=== PATIENT | male | born 1975 | race Caucasian/White ===

== ENCOUNTER → 2021-11-03 | Outpatient (CLI) | payer OTHER | LOC: M PLAIMG 08:40 | PROVIDERS: ATTEND Physician Assistant | DX: M77.11 Lateral epicondylitis, right elbow (principal) ==

== ENCOUNTER → 2021-12-25 | Outpatient (CLI) | payer OTHER | LOC: M PLARAD 09:07 | PROVIDERS: ATTEND Physician Assistant | DX: M25.522 Pain in left elbow (principal) ==

== ENCOUNTER 2022-06-26 08:21 | Emergency (ER) | payer OTHER ==
[~2022-06-26] VITALS: Ht 180.3 cm; Wt 89.8 kg
[2022-06-26] MEDS ORDERED: ERYT5OIN25 OP (08:55)
[2022-06-26 09:08] VITALS: BP 137/69
== END 2022-06-26 09:15 | disposition home or self-care (01) ==
LOC: M ED 08:21
DX: H10.33 Unspecified acute conjunctivitis, bilateral (principal)

== ENCOUNTER 2022-07-02 11:12 | Emergency (ER) | payer OTHER ==
[~2022-07-02] VITALS: Ht 180.3 cm; Wt 84.1 kg
[~2022-07-02 11:12] MED LIST: ERYT5OIN25 OP
[2022-07-02 11:13] VITALS: BP 135/78
[2022-07-02] MEDS ORDERED: AMOX875T PO (12:02)
== END 2022-07-02 12:12 | disposition home or self-care (01) ==
LOC: M ED 11:12
DX: J02.0 Streptococcal pharyngitis (principal)

== ENCOUNTER 2022-07-27 10:43 | Emergency (ER) | payer OTHER ==
[~2022-07-27] VITALS: Ht 180.3 cm; Wt 84.5 kg
[~2022-07-27 10:43] MED LIST changes: +AMOX875T PO
[2022-07-27] MEDS ORDERED: KETOROLAC 30 MG/ML 1ML VIAL IM ONE (11:55)
[2022-07-27] MEDS ORDERED: ACETAMINOPHEN TAB 650MG DOSE (2X325MG) PO ONE (11:55)
[2022-07-27] MEDS ORDERED: KETO10TAB PO (11:58)
[2022-07-27] MEDS ORDERED: CYCL-707 PO (11:58)
[2022-07-27 12:02] VITALS: BP 135/84
== END 2022-07-27 12:27 | disposition home or self-care (01) ==
LOC: M ED 10:43
DX: S39.012A Strain of muscle, fascia and tendon of lower back, initial encounter (principal); X58.XXXA Exposure to other specified factors, initial encounter; Y92.89 Other specified places as the place of occurrence of the external cause; Y93.89 Activity, other specified; Y99.8 Other external cause status; M54.31 Sciatica, right side
CPT/HCPCS: 96372; 99283; J1885

== ENCOUNTER 2022-10-01 09:31 | Day surgery (SDC) | payer OTHER ==
[~2022-10-01] VITALS: Ht 182.9 cm; Wt 80.3 kg
[~2022-10-01 09:31] MED LIST changes: +CYCL-707 PO; +KETO10TAB PO; +NS 1,000 ML IV ONE
[2022-10-01] MEDS ORDERED: propofoL 200 MG/20 ML VIAL As Ordered ONE ×2 (10:41→11:11)
[2022-10-01 11:30] VITALS: TEMP 96.6
[2022-10-01 11:50] VITALS: BP 120/76; O2SAT 98
== END 2022-10-01 12:08 | disposition home or self-care (01) ==
LOC: M OPP 09:31
PROVIDERS: ATTEND Internal Medicine Gastroenterology
DX: Z12.11 Encounter for screening for malignant neoplasm of colon (principal); Z80.0 Family history of malignant neoplasm of digestive organs; K51.20 Ulcerative (chronic) proctitis without complications

== ENCOUNTER 2024-11-19 06:24 | Day surgery (SDC) | payer OTHER ==
[~2024-11-19] VITALS: Ht 180.3 cm; Wt 88.3 kg
[~2024-11-19 06:24] MED LIST changes: +FINASTERIDE PO; +MINO2.5T PO; +MINOXIDIL PO; -NS 1,000 ML IV ONE
[2024-11-19] MEDS ORDERED: LR 1,000 ML IV SCH ×2 (06:35→08:55)
[2024-11-19] MEDS ORDERED: MIDAZOLAM INJ 2 MG/2 ML VIAL As Ordered ONE (07:09)
[2024-11-19] MEDS ORDERED: dexAMETHasone 4 MG/ML 1 ML VIAL As Ordered ONE (07:10)
[2024-11-19] MEDS ORDERED: LIDOCAINE 2% 100 MG/5 ML SDV (FOR ANES.) As Ordered ONE (07:10)
[2024-11-19] MEDS ORDERED: ONDANSETRON 4MG 2ML VIAL As Ordered ONE (07:10)
[2024-11-19] MEDS ORDERED: ACETAMINOPHEN 1000MG/100ML IV BAG As Ordered ONE (07:11)
[2024-11-19] MEDS ORDERED: dexmedeTOMIDine (4 MCG/ML) 200 MCG/50 ML BTL As Ordered ONE (07:16)
[2024-11-19] MEDS: ceFAZolin SOD 2 GM IV ONCE IV ONE (07:50)
[2024-11-19] MEDS ORDERED: KETOROLAC 30 MG/ML 1 ML VIAL As Ordered ONE (08:18)
[2024-11-19] MEDS: LIDOCAINE W/EPINEPHrine 1% 20 ML VIAL As Ordered ONE (08:43)
[2024-11-19] MEDS ORDERED: ONDANSETRON 4MG 2ML VIAL IV PRN (08:55)
[2024-11-19] MEDS ORDERED: PERC5TAB12 PO (09:17)
[2024-11-19] MEDS: HYDROMORPHONE HCL 0.5 MG/0.5 ML SYRINGE IV PRN (09:21)
[2024-11-19 10:40] VITALS: BP 116/66; TEMP 97.1; O2SAT 98
== END 2024-11-19 11:19 | disposition home or self-care (01) ==
LOC: M SDC 06:24
PROVIDERS: ATTEND Orthopaedic Surgery Hand Surgery
DX: M77.11 Lateral epicondylitis, right elbow (principal); G56.21 Lesion of ulnar nerve, right upper limb
CPT/HCPCS: 24358; 29999; 88304; J0131; J0690; J1100; J1171; J1885; J2250; J2405; J3010

== ENCOUNTER 2024-12-31 23:52 | Day surgery (SDC) | payer OTHER ==
[~2024-12-31] VITALS: Ht 180.3 cm; Wt 85.9 kg
[~2024-12-31 23:52] MED LIST changes: +PERC5TAB12 PO
[2025-01-01 00:32] LABS: BASO # 0.1 10^3/uL (0.0-0.2); BASO % 0.4 % (0.0-1.0); EOS # 0.4 10^3/uL (0.0-0.5); EOS % 2.4 % (0.0-3.0); LYMPH # 4.4 10^3/uL (1.5-5.0); LYMPH % 27.7 % (24.0-44.0); MONO # 1.4 10^3/uL (0.0-0.8); MONO % 8.6 % (2.0-8.0); NEUTROPHILS # 9.7 10^3/uL (1.5-8.5); NEUTROPHILS % 60.6 % (36.0-66.0); PLATELET COUNT, AUTOMATED 253 10^3/uL (150-450)
[2025-01-01 00:46] LABS: ALT/SGPT 39.0 U/L (7.0-40); AST/SGOT 21.0 U/L (<34); CALCIUM LEVEL 9.3 MG/DL (8.5-10.1); CARBON DIOXIDE LEVEL 28.0 MMOL/L (20-31); CHLORIDE LEVEL 102.0 MMOL/L (98-107); CREATININE FOR GFR 1.25 MG/DL (0.70-1.30); GLOMERULAR FILTRATION RATE 71.5 (>60); POTASSIUM SERUM 4.0 MMOL/L (3.5-5.1); SODIUM LEVEL 140.0 MMOL/L (136-145)
[2025-01-01] MEDS: KETOROLAC 30 MG/ML 1 ML VIAL IV ONE (01:42)
[2025-01-01] MEDS ORDERED: ISOVUE-370 76% 100 ML VIAL As Ordered ONE (04:30)
[2025-01-01] MEDS: PIPERACILLIN/TAZOBACTAM SOD 3.375 GM in DEXTROSE 5% (D5W) ADV/MINI-BAG 50 ML IV ONE (06:28)
[2025-01-01] MEDS: ONDANSETRON 4MG 2ML VIAL IV ONE (06:28)
[2025-01-01] MEDS: NS (Normal Saline) 0.9% 1,000 ML IV ONE (06:28)
[2025-01-01] MEDS: MORPHINE 4 MG/ML 1 ML VIAL IV ONE (07:34)
[2025-01-01] MEDS ORDERED: MINO (08:34)
[2025-01-01] MEDS ORDERED: PERCOCET PO (08:34)
[2025-01-01] MEDS ORDERED: [UNRECOGNIZED DRUG - MIXTURE] PO (08:35)
[2025-01-01] MEDS ORDERED: HOME MED LIST COMPLETE! XX SCH (08:40)
[2025-01-01] MEDS: MORPHINE 2 MG/ML 1 ML VIAL IV ONE (08:43)
[2025-01-01] MEDS ORDERED: ONDANSETRON 4MG 2ML VIAL As Ordered ONE (10:56)
[2025-01-01] MEDS ORDERED: MIDAZOLAM INJ 2 MG/2 ML VIAL As Ordered ONE (10:56)
[2025-01-01] MEDS ORDERED: dexAMETHasone 4 MG/ML 1 ML VIAL As Ordered ONE (10:56)
[2025-01-01] MEDS ORDERED: LIDOCAINE 2% 100 MG/5 ML SDV (FOR ANES.) As Ordered ONE (10:56)
[2025-01-01] MEDS ORDERED: KETOROLAC 30 MG/ML 1 ML VIAL As Ordered ONE (10:56)
[2025-01-01] MEDS ORDERED: ROCURONIUM BROMIDE 50MG/5ML VIAL As Ordered ONE (10:56)
[2025-01-01] MEDS: ZOSYN 3.375GM VIAL As Ordered ONE (12:20)
[2025-01-01] MEDS ORDERED: SUGAMMADEX SODIUM 200 MG/2 ML VIAL As Ordered ONE (12:41)
[2025-01-01] MEDS ORDERED: ACETAMINOPHEN 1000MG/100ML IV BAG As Ordered ONE (12:41)
[2025-01-01] MEDS ORDERED: HYDROMORPHONE HCL 0.5 MG/0.5 ML SYRINGE IV PRN (13:00)
[2025-01-01] MEDS ORDERED: ONDANSETRON 4MG 2ML VIAL IV PRN (13:00)
[2025-01-01] MEDS ORDERED: LR 1,000 ML IV SCH (13:00)
[2025-01-01] MEDS ORDERED: AUGM500T34 PO (13:17)
[2025-01-01] MEDS ORDERED: HYDR-3713 PO (13:17)
[2025-01-01 15:30] VITALS: BP 108/80; TEMP 97.2; O2SAT 96
== END 2025-01-01 15:58 | disposition home or self-care (01) ==
LOC: M ED 23:52 → M SDC 23:53
PROVIDERS: ATTEND Surgery
DX: K35.80 Unspecified acute appendicitis (principal); G47.30 Sleep apnea, unspecified
CPT/HCPCS: 44970; 74177; 80048; 80076; 83690; 85025; 88304; 99285; J0131; J0665; J1100; J1885; J2250; J2405; J2543; J3010; Q9967

== ENCOUNTER 2025-01-06 02:26 | Inpatient (IN) | payer OTHER ==
[~2025-01-06] VITALS: Ht 180.3 cm; Wt 85.9 kg
[~2025-01-06 02:26] MED LIST changes: +AUGM500T34 PO; +HYDR-3713 PO; +MINO; +PERCOCET PO; +[UNRECOGNIZED DRUG - MIXTURE] PO
[2025-01-06 07:24] LABS: BASO # 0.0 10^3/uL (0.0-0.2); BASO % 0.4 % (0.0-1.0); EOS # 0.3 10^3/uL (0.0-0.5); EOS % 4.0 % (0.0-3.0); LYMPH # 1.1 10^3/uL (1.5-5.0); LYMPH % 12.6 % (24.0-44.0); MONO # 1.0 10^3/uL (0.0-0.8); MONO % 11.5 % (2.0-8.0); NEUTROPHILS # 6.1 10^3/uL (1.5-8.5); NEUTROPHILS % 71.1 % (36.0-66.0); PLATELET COUNT, AUTOMATED 239 10^3/uL (150-450)
[2025-01-06] MEDS: KETOROLAC 30 MG/ML 1 ML VIAL IV ONE (07:28)
[2025-01-06 07:56] LABS: ALT/SGPT 163 U/L (7.0-40); AST/SGOT 62 U/L (<34); CALCIUM LEVEL 8.8 MG/DL (8.5-10.1); CARBON DIOXIDE LEVEL 29 MMOL/L (20-31); CHLORIDE LEVEL 100 MMOL/L (98-107); CREATININE FOR GFR 0.99 MG/DL (0.70-1.30); GLOMERULAR FILTRATION RATE > 90.0 (>60); POTASSIUM SERUM 4.4 MMOL/L (3.5-5.1); SODIUM LEVEL 142 MMOL/L (136-145)
[2025-01-06] MEDS ORDERED: ISOVUE-370 76% 100 ML VIAL As Ordered ONE (08:52)
[2025-01-06] MEDS: NS (Normal Saline) 0.9% 1,000 ML IV ONE (09:55)
[2025-01-06] MEDS ORDERED: AMOX875T2 PO (09:56)
[2025-01-06] MEDS ORDERED: HOME MED LIST COMPLETE! XX SCH (10:00)
[2025-01-06] MEDS: PIPERACILLIN/TAZOBACTAM SOD 4.5 GM in DEXTROSE 5% (D5W) ADV/MINI-BAG 50 ML IV ONE (10:21)
[2025-01-06] MEDS ORDERED: ONDANSETRON 4MG 2ML VIAL IV PRN (11:00)
[2025-01-06] MEDS ORDERED: ACETAMINOPHEN *IV* 1,000 MG in IV 1 EA IV PRN (11:00)
[2025-01-06] MEDS: ENOXAPARIN 40 MG/0.4 ML SYRINGE (J1650 PER 10MG) SC SCH (11:58)
[2025-01-06] MEDS: LR 1,000 ML IV SCH (11:58)
[2025-01-06 12:17] VITALS: BP 129/62; TEMP 97.9; O2SAT 97
[2025-01-06] MEDS: ACETAMINOPHEN *IV* 1,000 MG in IV 1 EA IV PRN (12:46)
[2025-01-06 13:00] LABS: HEPATITIS C VIRUS ABY INDEX < 0.02 INDEX (<0.8)
[2025-01-06] MEDS: PIPERACILLIN/TAZOBACTAM SOD 3.375 GM in DEXTROSE 5% (D5W) ADV/MINI-BAG 50 ML IV SCH (15:30)
[2025-01-06 19:50] VITALS: BP 117/64; TEMP 98; O2SAT 98
[2025-01-07 03:58] VITALS: BP 119/71; TEMP 98; O2SAT 97
[2025-01-07] MEDS: KETOROLAC 30 MG/ML 1 ML VIAL IV PRN (04:04)
[2025-01-07 05:45] LABS: PLATELET COUNT, AUTOMATED 215 10^3/uL (150-450)
[2025-01-07 06:22] LABS: ALT/SGPT 111.0 U/L (7.0-40); AST/SGOT 32.0 U/L (<34); CALCIUM LEVEL 8.5 MG/DL (8.5-10.1); CARBON DIOXIDE LEVEL 29.0 MMOL/L (20-31); CHLORIDE LEVEL 100.0 MMOL/L (98-107); CREATININE FOR GFR 1.1 MG/DL (0.70-1.30); GLOMERULAR FILTRATION RATE 83.3 (>60); POTASSIUM SERUM 4.0 MMOL/L (3.5-5.1); SODIUM LEVEL 139.0 MMOL/L (136-145)
[2025-01-07] MEDS: PANTOPRAZOLE 40MG VIAL IV SCH (09:06)
[2025-01-07 12:00] VITALS: BP 113/59; TEMP 98; O2SAT 97
[2025-01-07 20:00] VITALS: BP 117/70; TEMP 98.2; O2SAT 98
[2025-01-08 05:00] VITALS: BP 111/65; TEMP 98.3; O2SAT 95
[2025-01-08 06:43] LABS: BASO # 0.0 10^3/uL (0.0-0.2); BASO % 0.5 % (0.0-1.0); EOS # 0.4 10^3/uL (0.0-0.5); EOS % 6.7 % (0.0-3.0); LYMPH # 1.1 10^3/uL (1.5-5.0); LYMPH % 19.9 % (24.0-44.0); MONO # 0.6 10^3/uL (0.0-0.8); MONO % 10.2 % (2.0-8.0); NEUTROPHILS # 3.5 10^3/uL (1.5-8.5); NEUTROPHILS % 62.2 % (36.0-66.0); PLATELET COUNT, AUTOMATED 215 10^3/uL (150-450)
[2025-01-08 07:06] LABS: ALT/SGPT 84.0 U/L (7.0-40); AST/SGOT 19.0 U/L (<34); CALCIUM LEVEL 8.4 MG/DL (8.5-10.1); CARBON DIOXIDE LEVEL 28.0 MMOL/L (20-31); CHLORIDE LEVEL 103.0 MMOL/L (98-107); CREATININE FOR GFR 1.3 MG/DL (0.70-1.30); GLOMERULAR FILTRATION RATE 68.2 (>60); POTASSIUM SERUM 4.1 MMOL/L (3.5-5.1); SODIUM LEVEL 141.0 MMOL/L (136-145)
[2025-01-08] MEDS ORDERED: ACETAMINOPHEN 325 MG TAB PO PRN (07:40)
[2025-01-08 12:00] VITALS: BP 116/68; TEMP 97; O2SAT 100
[2025-01-08] MEDS ORDERED: METR-265 PO (12:48)
[2025-01-08] MEDS ORDERED: ACET32TAB PO (12:48)
[2025-01-08] MEDS ORDERED: PROB250C PO (12:48)
[2025-01-08] MEDS ORDERED: CIPR250T3 PO (12:48)
== END 2025-01-08 14:10 | disposition home or self-care (01) | DRG 390 ==
LOC: M ED 02:26 → M ED INP 10:51 → M MS4PR 12:09
PROVIDERS: ADMIT Student in an Organized Health Care Education/Training Program; ATTEND Student in an Organized Health Care Education/Training Program
DX: K56.7 Ileus, unspecified (principal); K52.9 Noninfective gastroenteritis and colitis, unspecified; R74.01 Elevation of levels of liver transaminase levels; Z90.49 Acquired absence of other specified parts of digestive tract